=== PATIENT | female | born 1965 ===

== ENCOUNTER → 2017-02-23 | Outpatient (REF) ==
--- NOTE | 2017-02-23 13:48 | REP ---
Clinical: Pain . Technique: AP, lateral, bilateral oblique views of the right elbow. Findings: No acute fracture or dislocation is appreciated. Joint spaces and surrounding soft tissues appear normal. Lateral view demonstrates normal positioning to the anterior and posterior fat pads without evidence for effusion/hemarthrosis. No subcutaneous emphysema or foreign body identified. No significant degenerative changes are appreciated. Impression: Normal right elbow radiographs. Signed by Manoj West MD 02/23/2017 01:39 P
--- NOTE | 2017-02-23 13:48 | REP ---
Clinical: Pain. Technique: AP and lateral views of the right forearm. Findings: No acute fracture dislocation. Skeletal structures, joint spaces, and surrounding soft tissues are normal. No overt degenerative changes are appreciated. Impression: Normal right forearm radiographs. Signed by Manoj West MD 02/23/2017 01:40 P
--- NOTE | 2017-02-23 14:04 | REP ---
Clinical: Pain. Technique: Internal rotation, external rotation, and Y view of the right shoulder. Findings: Chronic-appearing AC separation is suggested with small amount of chondrocalcinosis in the joint space and cortical irregularity/mild spurring involving the distal acromion. Glenoid and humeral head appear relatively normal. There is no evidence for acute fracture dislocation. 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 Signed by Manoj West MD 02/23/2017 01:55 P
== END ==
LOC: M SMT 13:12
PROVIDERS: ATTEND Internal Medicine
DX: M19.011 Primary osteoarthritis, right shoulder (principal); M25.511 Pain in right shoulder; M79.631 Pain in right forearm; M25.521 Pain in right elbow

== ENCOUNTER → 2024-06-19 | Outpatient (REF) | payer OTHER | LOC: M LAB REF 18:05 | PROVIDERS: ATTEND Surgery | DX: D17.23 Benign lipomatous neoplasm of skin and subcutaneous tissue of right leg (principal) ==

== ENCOUNTER → 2024-07-03 | Outpatient (REF) | payer OTHER | LOC: M LAB REF 18:12 | PROVIDERS: ATTEND Surgery | DX: D17.1 Benign lipomatous neoplasm of skin and subcutaneous tissue of trunk (principal) ==